=== PATIENT | female | born 1965 | race African-American/Black ===

== ENCOUNTER → 2017-01-17 17:19 | Outpatient (CLI) | payer MEDICARE, MEDICAID ==
[2016-09-13 10:41] VITALS: BMI 33.9
[~2017-01-17 17:19] MED LIST: CATAPRES0.1 MG PO; LAMICTAL100 MG PO; LIPITOR10 MG PO; NORVASC5 MG PO; TRILEPTAL600 MG PO; ZANAFLEX4 MG PO; ZESTRIL40 MG PO
== END | disposition home or self-care (01) ==
LOC: D.MAMMO 16:00
DX: Z12.31 Encounter for screening mammogram for malignant neoplasm of breast (principal)

== ENCOUNTER 2018-09-18 07:52 | Outpatient (CLI) | payer MEDICARE ==
[2016-09-13 10:41] VITALS: BMI 33.9
== END 2018-09-18 23:59 | disposition home or self-care (01) ==
LOC: D.MAMMO 07:52
DX: Z12.31 Encounter for screening mammogram for malignant neoplasm of breast (principal)

== ENCOUNTER → 2019-01-21 13:54 | Outpatient (CLI) | payer MEDICARE ==
[2016-09-13 10:41] VITALS: BMI 33.9
== END | disposition home or self-care (01) ==
LOC: D.MRI 13:54
PROVIDERS: ATTEND Orthopaedic Surgery
DX: M54.16 Radiculopathy, lumbar region (principal)

== ENCOUNTER 2020-04-19 08:00 | Outpatient (CLI) | payer MEDICARE, MEDICAID ==
[2016-09-13 10:41] VITALS: BMI 33.9
== END 2020-04-19 10:00 | disposition home or self-care (01) ==
LOC: D.MAMMO 08:00
PROVIDERS: ATTEND Family Medicine
DX: Z12.31 Encounter for screening mammogram for malignant neoplasm of breast (principal)